=== PATIENT | female | born 1980 | race Caucasian/White ===

== ENCOUNTER → 2021-05-07 09:21 | Outpatient (CLI) | payer OTHER, SELFPAY ==
--- NOTE | ~2021-05-07 | MR_ITS ---
EXAMINATION: MR cervical spine wo con EXAM DATE: 05/07/2021 09:52 INDICATION: Cervicalgia, paresthesia, abnormal reflexes. TECHNIQUE: Multi-sequential, multiplanar MR images of the cervical spine were obtained without contra st. Axial T2, axial T2 MERGE sequence. Sagittal T1, T2, T2 fat saturation images also obtained. Th ere is no prior study for comparison. FINDINGS: The vertebral bodies are aligned in the AP dimension. Mild mid and lower cervical disc dis ease. The spinal cord signal intensity and intrinsic morphology is normal. Cervicomedullary junction is normal in appearance. There are no suspicious marrow signal abnormalities. Paraspinal soft tissue is unremarkable. Level by level evaluation: C2-C3: Disc does not extend beyond the endplate margin. Uncovertebral joint arthropathy: None. Facet joint arthropathy: None. Neural foraminal stenosis: No stenosis. Central canal stenosis: No stenosis. C3-C4: Disc does not extend beyond the endplate margin. Uncovertebral joint arthropathy: None. Facet joint arthropathy: None. Neural foraminal stenosis: No stenosis. Central canal stenosis: No stenosis. C4-C5: Disc does not extend beyond the endplate margin. Uncovertebral joint arthropathy: None. Facet joint arthropathy: Mild. Neural foraminal stenosis: No stenosis. Central canal stenosis: No stenosis. C5-C6: Disc does not extend beyond the endplate margin. Uncovertebral joint arthropathy: Mild . Facet joint arthropathy: Mild. Neural foraminal stenosis: Mild right. Central canal stenosis: No stenosis. C6-C7: Disc does not extend beyond the endplate margin. Uncovertebral joint arthropathy: Mild. Facet joint arthropathy: Mild. Neural foraminal stenosis: Mild left. Central canal stenosis: No stenosis. C7-T1: Disc does not extend beyond the endplate margin. Uncovertebral joint arthropathy: None. Facet joint arthropathy: Mild left. Neural foraminal stenosis: No stenosis. Central canal stenosis: No stenosis. IMPRESSION: 1. Mild cervical spondylosis Reviewed, dictated and finalized at location G.
== END ==
PROVIDERS: PCP Family Medicine; Visit Provider Family Medicine
DX: R20.2 Paresthesia of skin (principal); R29.2 Abnormal reflex; M47.892 Other spondylosis, cervical region
CPT/HCPCS: 72141

== ENCOUNTER 2021-09-21 00:20 | Day surgery (SDC) | payer OTHER, SELFPAY ==
[2021-09-02 09:17] VITALS: BMI 22.2
--- NOTE | 2021-09-11 14:44 | PM.HPGS ---
History of Present Illness History of Present Illness Consent: Risks, benefits, and alternatives have been discussed and questions answered. Patient agrees to proceed with procedure. Chief complaint: constipation, Rectal pressure Narrative: Louisa Araiza is a 41 year old female Who suffer some rectal pressure and also a change in bowel habits, tending to have constipation. She has stress incontinence for which she is going to have pelvic floor therapy [facility] Family History Family History Father Hypertension Heart disease Alcoholism Larynx cancer Cerebrovascular accident Mother Breast cancer Social History Social History (Updated 08/12/21 @ 09:02 by Rhonda Smith [employer]) Smoking status: Never smoker Alcohol intake: current Alcohol use details: 2-3 drinks monthly Substance use: never Substance use type: does not use Living arrangements: with family Spiritual care concerns: No Meds Home Medications and Allergies Home Medications Medication Instructions Recorded Confirmed Type terbinafine HCl 250 mg tablet 250 mg PO DAILY 08/12/21 09/02/21 History calcium polycarbophil 625 mg 1,250 mg PO DAILY 09/02/21 09/02/21 History tablet (FiberCon) Allergies Allergy/AdvReac Type Severity Reaction Status Date / Time Penicillins AdvReac Mild Vomiting Verified 09/02/21 09:16
--- NOTE | 2021-09-18 11:12 | SUR.PREOP ---
Left voicemail about magnesium citrate recall.
--- NOTE | 2021-09-21 07:16 | PM.HPGS ---
History of Present Illness History of Present Illness Consent: Risks, benefits, and alternatives have been discussed and questions answered. Patient agrees to proceed with procedure. Chief complaint: constipation, Rectal pressure Narrative: Louisa Araiza is a 41 year old female Referred for investigation of rectal pressure and change in bowel habits. She finds that she needs to lean back to have a bowel movement and needs to strain at times. She has been having some urinary issues for which she is going to have pelvic floor therapy. Review of Systems Review of Systems: All systems reviewed & are unremarkable except as noted in HPI and below PMFSH Family History Family History Father Hypertension Heart disease Alcoholism Larynx cancer Cerebrovascular accident Mother Breast cancer Social History Social History Smoking status: Never smoker Alcohol intake: current Alcohol use details: 2-3 drinks monthly Substance use: never Substance use type: does not use Living arrangements: with family Spiritual care concerns: No Meds Home Medications and Allergies Home Medications Medication Instructions Recorded Confirmed Type terbinafine HCl 250 mg tablet 250 mg PO DAILY 08/12/21 09/21/21 History calcium polycarbophil 625 mg 1,250 mg PO DAILY 09/02/21 09/21/21 History tablet (FiberCon) Allergies Allergy/AdvReac Type Severity Reaction Status Date / Time Penicillins AdvReac Mild Vomiting Verified 09/21/21 09:57 Exam Resp: Auscultation: clear to auscultation bilaterally Cardio: Rate: regular rate Rhythm: regular rhythm GI: GI Palp: Yes Soft to palpation and No Tenderness to palpation present (GI) Assessment and Plan Assessment and plan (1) Change in bowel habits: Code(s): R19.4 - Change in bowel habit Status: Acute Assessment and Plan: Colonoscopy with possible biopsy or polypectomy or cautery or injection of substances.
[2021-09-21 10:01] VITALS: BP 111/55; PULSE 67; RESP 16; TEMP 36.4; O2SAT 100; BMI 21.2
[2021-09-21] MEDS: LACTATED RINGERS 1,000 ML 150 ML IV CONT (10:13)
--- NOTE | 2021-09-21 10:36 | WPDANESEPPF ---
Anes - Initial Pre Proc Eval Procedure: Operation Date: 09/21/21 11:15 Proposed Procedures p Colonoscopy - Jordan Massey MD Date/Time: 09/21/21 10:36 Surgeon: Jordan Massey MD Pre Op Diagnosis: constipation, Rectal pressure Patient Data Age: 41 Gender: F Height: 1.6 m Weight: 54.4 kg Last Vital Signs Temp 97.6 F 09/21/21 10:01 Pulse 89 09/21/21 10:25 Resp 22 H 09/21/21 10:25 BP 103/64 09/21/21 10:25 Pulse Ox 97 09/21/21 10:25 O2 Del Method Room Air 09/21/21 10:25 Allergies Allergy/AdvReac Type Severity Reaction Status Date / Time Penicillins AdvReac Mild Vomiting Verified 09/21/21 09:57 Home Medications Medication Instructions Recorded Confirmed Type terbinafine HCl 250 mg tablet 250 mg PO DAILY 08/12/21 09/21/21 History calcium polycarbophil 625 mg 1,250 mg PO DAILY 09/02/21 09/21/21 History tablet (FiberCon) Patient hx anesthesia problems: none Family hx anesthesia problems: none Results Review: All pre-operative results and documents have been reviewed as part of the pre-operative evaluation. FOR[facility]LY [facility], [facility]1983 Family History Family History Father Hypertension Heart disease Alcoholism Larynx cancer Cerebrovascular accident Mother Breast cancer Social History Social History Smoking status: Never smoker Alcohol intake: current Alcohol use details: 2-3 drinks monthly Substance use: never Substance use type: does not use Living arrangements: with family Spiritual care concerns: No Anes - Eval Final PreProcedure Day of Procedure 09/21/21 10:36 Patient weight: normal Heart: regular rate and rhythm Lungs: clear to auscultation Airway: Mallampati scale class II Neurological: alert and oriented Last oral intake: >/= 8 hours ASA classification: I Emergent: no Anesthetic plan: proceed Anesthesia type and monitoring: general GIVS and standard monitoring Results Review: All pre-operative results and documents have been reviewed as part of the pre-operative evaluation. Informed Consent: The patient's anesthetic plan and its attendant risks and benefits were discussed with the patient/family/POA. Questions were solicited and answers provided to the satisfaction of the patient/family/POA.
[2021-09-21 10:53] VITALS: BP 89/52; PULSE 63; RESP 20; O2SAT 100
[2021-09-21 11:03] VITALS: BP 96/60; PULSE 50; RESP 15; O2SAT 100
[2021-09-21 11:13] VITALS: BP 101/58; PULSE 52; RESP 16; O2SAT 100
== END 2021-09-21 11:28 | disposition home or self-care (01) ==
PROVIDERS: PCP Family Medicine; Visit Provider Internal Medicine Gastroenterology
PROC: 0DJD8ZZ Inspection of Lower Intestinal Tract, Via Natural or Artificial Opening Endoscopic (ICD-10-PCS; CPT 45378; principal; 2021-09-21 11:15)
DX: R19.4 Change in bowel habit (principal)
CPT/HCPCS: 45378; J2704; J7120